=== PATIENT | female | born 1960 | race Caucasian/White ===

== ENCOUNTER → 2023-10-13 07:16 | Outpatient (REF) | payer BC, SELFPAY | LOC: HWRAD 07:16 | PROVIDERS: ATTENDING PHYSICIAN Internal Medicine Critical Care Medicine; FAMILY PHYSICIAN Family Medicine | DX: R09.82 Postnasal drip (principal); J32.9 Chronic sinusitis, unspecified | CPT/HCPCS: 70486 ==

== ENCOUNTER → 2023-10-14 08:35 | Outpatient (REF) | payer BC, SELFPAY | LOC: HWRAD 08:35 | PROVIDERS: ATTENDING PHYSICIAN Internal Medicine Critical Care Medicine; FAMILY PHYSICIAN Family Medicine | DX: J98.8 Other specified respiratory disorders (principal) | CPT/HCPCS: 70492; Q9967 ==

== ENCOUNTER → 2023-11-01 | Outpatient (REF) | payer BC, SELFPAY | LOC: DHSLP | PROVIDERS: ATTENDING PHYSICIAN Internal Medicine Critical Care Medicine; FAMILY PHYSICIAN Family Medicine | DX: G47.33 Obstructive sleep apnea (adult) (pediatric) (principal) | CPT/HCPCS: 95800 ==

== ENCOUNTER → 2024-02-24 13:13 | Outpatient (REF) | payer BC, SELFPAY | LOC: RAD 13:13 | PROVIDERS: ATTENDING PHYSICIAN Family Medicine | DX: Z00.00 Encounter for general adult medical examination without abnormal findings (principal) | CPT/HCPCS: 77080 ==

== ENCOUNTER 2024-03-17 06:42 | Day surgery (SDC) | payer BC, SELFPAY ==
[2024-03-17] VITALS (9 sets, daily range): BP systolic 109–123; BP diastolic 51–74; BMI 29.9
[2024-03-17] MEDS: EMEND 40 MG PO (09:48)
== END 2024-03-17 14:51 | disposition home or self-care (01) ==
LOC: SDS 06:42
PROVIDERS: ATTENDING PHYSICIAN Otolaryngology Facial Plastic Surgery
DX: J32.0 Chronic maxillary sinusitis (principal); J34.2 Deviated nasal septum; J34.3 Hypertrophy of nasal turbinates
CPT/HCPCS: 31267; 30520; 31255; 30140; 88304; 88311

== ENCOUNTER → 2024-09-01 11:00 | Outpatient (REF) | payer BC, SELFPAY | LOC: HWRAD 11:00 | PROVIDERS: ATTENDING PHYSICIAN Internal Medicine; FAMILY PHYSICIAN Family Medicine; REFERRING PHYSICIAN Internal Medicine | DX: M34.9 Systemic sclerosis, unspecified (principal); J84.9 Interstitial pulmonary disease, unspecified | CPT/HCPCS: 71250 ==

== ENCOUNTER → 2024-09-04 14:56 | Outpatient (REF) | payer BC, SELFPAY | LOC: HWRCS 14:56 | PROVIDERS: ATTENDING PHYSICIAN Internal Medicine; REFERRING PHYSICIAN Internal Medicine | DX: I27.20 Pulmonary hypertension, unspecified (principal); M34.0 Progressive systemic sclerosis | CPT/HCPCS: 93306 ==

== ENCOUNTER → 2024-12-24 07:45 | Outpatient (REF) | payer BC, SELFPAY | LOC: PAVMRI 07:45 | PROVIDERS: ATTENDING PHYSICIAN Orthopaedic Surgery; FAMILY PHYSICIAN Family Medicine | DX: M25.512 Pain in left shoulder (principal) | CPT/HCPCS: 73221 ==